=== PATIENT | female | born 1995 | race Caucasian/White ===

== ENCOUNTER → 2021-09-02 | Day surgery (SDC) | payer OTHER ==
[~2021-09-02] VITALS: Ht 170.2 cm; Wt 63.7 kg
[~2021-09-02] MED LIST: BACLOFEN 10MG T10 MG PO; ELAVIL50 MG PO; IBUPROFEN800 M1 PO; IBUPROFEN800 MG PO; METHYLERGONOVI0.2 MG PO; NAPROXEN500 MG PO; PRINIVIL10 MG PO; VIBRAMYCIN100 MG PO
[2021-09-02 11:12] LABS: HCT 37.1 % (37.0-47.0); HGB 12.2 g/dl (12.5-16.0); MCH 29.2 pg (25.0-31.0); MCHC 32.9 g/dL (32.0-36.0); MCV 88.8 fL (78.0-100.0); MPV 11.2 fL (6.0-9.5); RBC 4.18 M/uL (4.20-5.40); RDW 11.6 % (11.5-14.0); WBC 5.4 K/uL (4.0-10.5)
== END | disposition home or self-care (01) ==
LOC: FAS 09:52
PROVIDERS: Obstetrics & Gynecology
DX: O02.1 Missed abortion (principal); I10 Essential (primary) hypertension; F41.9 Anxiety disorder, unspecified; F32.A Depression, unspecified; Z79.899 Other long term (current) drug therapy; Z87.891 Personal history of nicotine dependence; Z86.16 Personal history of COVID-19
CPT/HCPCS: 36415; 86850; 86900; 86901; J1100; J1885; J2250; J2405; J2704; J3010; J7050; J7120

== ENCOUNTER 2021-09-08 18:40 | Emergency (ER) | payer OTHER ==
[2021-09-08 21:15] LABS: BASOPHIL 0.5 % (0-2); EOSINOPHIL 1.7 % (0-5); HCT 35.8 % (37.0-47.0); HGB 11.6 g/dl (12.5-16.0); LYMPHOCYTE 47.1 % (15-48); MCH 29.2 pg (25.0-31.0); MCHC 32.4 g/dL (32.0-36.0); MCV 90.2 fL (78.0-100.0); MONOCYTE 5.5 % (0-12); MPV 11.4 fL (6.0-9.5); NEUTROPHIL 45.1 % (41-80); NRBC 0; PLT 251 K/uL (150-400); RBC 3.97 M/uL (4.20-5.40); RDW 11.4 % (11.5-14.0); WBC 8.2 K/uL (4.0-10.5)
[2021-09-08 21:26] LABS: ALBUMIN 3.7 g/dL (3.4-5.0); BILIRUBIN - TOTAL 0.2 mg/dL (0.2-1.0); BUN/CREAT RATIO (CALC) 12.8 RATIO; CREATININE 0.78 mg/dL (0.51-0.95); GLOBULIN (CALCULATION) 3.2 g/dL; POTASSIUM 3.9 mmol/L (3.5-5.1); TOTAL PROTEIN 6.9 g/dL (6.4-8.2)
== END 2021-09-09 00:39 | disposition home or self-care (01) ==
LOC: FER 18:40
PROVIDERS: Emergency Medicine Emergency Medical Services
DX: O03.6 Delayed or excessive hemorrhage following complete or unspecified spontaneous abortion (principal); N83.202 Unspecified ovarian cyst, left side; I10 Essential (primary) hypertension
CPT/HCPCS: 36415; 76830; 80053; 84702; 85025; 86850; 86900; 86901

== ENCOUNTER 2022-01-10 10:42 | Emergency (ER) | payer OTHER ==
[2022-01-10 12:53] LABS: BASOPHIL 0.4 % (0-2); EOSINOPHIL 0.5 % (0-5); HCT 37.9 % (37.0-47.0); HGB 12.4 g/dl (12.5-16.0); LYMPHOCYTE 26.3 % (15-48); MCH 28.4 pg (25.0-31.0); MCHC 32.7 g/dL (32.0-36.0); MCV 86.9 fL (78.0-100.0); MONOCYTE 4.7 % (0-12); MPV 11.2 fL (6.0-9.5); NEUTROPHIL 67.9 % (41-80); NRBC 0; PLT 226 K/uL (150-400); RBC 4.36 M/uL (4.20-5.40); RDW 12.3 % (11.5-14.0); WBC 10.8 K/uL (4.0-10.5)
[2022-01-10 13:01] LABS: BUN/CREAT RATIO (CALC) 7.6 RATIO; CREATININE 0.79 mg/dL (0.51-0.95); POTASSIUM 3.9 mmol/L (3.5-5.1)
[2022-01-10 13:16] LABS: CORONAVIRUS 2019 SARS-COV-2 NEGATIVE (NEGATIVE); INFLUENZA A NAA NEGATIVE (NEGATIVE)
[2022-01-10 13:23] LABS: BILIRUBIN NEGATIVE (NEGATIVE); BLOOD TRACE-INTACT Ery/uL (NEGATIVE); CLARITY CLEAR (CLEAR); COLOR YELLOW (YELLOW); GLUCOSE (U) NORMAL (NORMAL); LEUKOCYTES NEGATIVE Leu/uL (NEGATIVE); NITRITE NEGATIVE (NEGATIVE); PROTEIN NEGATIVE (NEGATIVE); UROBILINOGEN 0.2 mg/dL (0.2-1.0); pH 5.5 (5.0-9.0)
[2022-01-10 13:29] LABS: BACTERIA TRACE; MUCOUS MODERATE; URINARY WBC RARE
== END 2022-01-10 14:02 | disposition home or self-care (01) ==
LOC: FER 10:42
PROVIDERS: Nurse Practitioner Family
DX: B34.9 Viral infection, unspecified (principal); I10 Essential (primary) hypertension; F17.290 Nicotine dependence, other tobacco product, uncomplicated; Z20.822 Contact with and (suspected) exposure to COVID-19
CPT/HCPCS: 36415; 71045; 80048; 81001; 85025; U0002

== ENCOUNTER 2022-07-06 16:33 | Emergency (ER) | payer OTHER ==
[2022-07-06 17:41] LABS: BASOPHIL 0.4 % (0-2); EOSINOPHIL 0.4 % (0-5); HCT 33.7 % (37.0-47.0); HGB 11.4 g/dl (12.5-16.0); LYMPHOCYTE 22.3 % (15-48); MCH 29.3 pg (25.0-31.0); MCHC 33.8 g/dL (32.0-36.0); MCV 86.6 fL (78.0-100.0); MONOCYTE 4.7 % (0-12); MPV 10.9 fL (6.0-9.5); NRBC 0; PLT 241 K/uL (150-400); RBC 3.89 M/uL (4.20-5.40); WBC 10.2 K/uL (4.0-10.5)
[2022-07-06 17:51] LABS: BUN/CREAT RATIO (CALC) 15.9 RATIO; CREATININE 0.69 mg/dL (0.51-0.95)
[2022-07-06 18:06] LABS: BILIRUBIN NEGATIVE (NEGATIVE); BLOOD 3+ Ery/uL (NEGATIVE); CLARITY CLEAR (CLEAR); COLOR YELLOW (YELLOW); GLUCOSE (U) NORMAL (NORMAL); LEUKOCYTES NEGATIVE Leu/uL (NEGATIVE); NITRITE NEGATIVE (NEGATIVE); PROTEIN NEGATIVE (NEGATIVE); SPECIFIC GRAVITY 1.025 (1.001-1.030)
[2022-07-06 18:34] LABS: URINARY WBC RARE
[2022-07-06 18:35] LABS: BACTERIA TRACE
== END 2022-07-06 20:20 | disposition home or self-care (01) ==
LOC: FER 16:33
PROVIDERS: Emergency Medicine
DX: O99.891 Other specified diseases and conditions complicating pregnancy (principal); R10.9 Unspecified abdominal pain; Z87.891 Personal history of nicotine dependence; Z3A.14 14 weeks gestation of pregnancy
CPT/HCPCS: 36415; 76815; 80048; 81001; 84702; 85025; 86900; 86901